=== PATIENT | female | born 1995 | race Two or more races ===

== ENCOUNTER → 2020-07-17 | Outpatient (CLI) | payer OTHER ==
--- NOTE | 2020-07-17 16:31 | KCIC ---
EXAM: Right hand, 3 views. HISTORY: Pain. Dogbite. COMPARISON: None. FINDINGS: 3 views of the right hand are obtained. There is no fracture, dislocation or subluxation. N o radiodense foreign body is seen. IMPRESSION: No acute osseous finding. Electronically signed by: Tawnya Holland MD (07/17/2020 4:29 PM) [id number]
== END ==
LOC: KCIC 15:47
PROVIDERS: ATTEND Nurse Practitioner Family
DX: M79.641 Pain in right hand (principal)
CPT/HCPCS: 73130